=== PATIENT | female | born 1965 | race Caucasian/White ===

== ENCOUNTER 2016-11-02 02:01 | Emergency (ER) | payer BC ==
--- NOTE | 2016-11-02 02:21 | EDPRACDOC ---
<Javier Gaston - Last Filed: 11/02/16 04:09> - History of Present Illness Pain Location: Reports: Diffuse Pain Context: Reports: Spontaneous Pain Severity: Mild Pain Quality: Reports: Aching, Cramping Pain Radiation: Reports: Back Adult Abdominal History: Reports: Abdominal Surgery Modifying Factors: improves with: Nothing Female Associated Signs & Symptoms: Reports: Nausea, Vomiting Oral Intake: Decreased Urinary Output: Normal <Ranjeet Scott - Last Filed: 11/02/16 05:20> - General Information Stated Complaint: N/V Home Medications: Home Medications Cyanocobalamin (Vitamin B-12) [Vitamin B-12] 2,000 mcg PO DAILY 03/12/14 Folic Acid 1 mg PO DAILY 03/12/14 Multivitamin [Daily Vitamin] 1 each PO DAILY 03/12/14 Aspirin 11/02/16 Meloxicam 15 mg PO DAILY 11/02/16 Simvastatin 10 mg PO HS 11/02/16 Allergies/Adverse Reactions: Allergies Allergy/AdvReac Type Severity Reaction Status Date / Time mirabegron Allergy Unknown Verified 03/12/14 16:21 nitrofurantoin Allergy Difficulty Verified 03/12/14 15:28 [From Macrobid] Breathing nitrofurantoin Allergy Difficulty Verified 03/12/14 15:28 macrocrystalline Breathing [From Macrobid] Tetanus Vaccines and Toxoid Allergy Unknown Verified 11/02/16 02:29 - History of Present Illness HPI: NOTE SEEN AND EXAMINED; PT HAS HX OF AIHA WITH SUBSEQUENT SPLENECTOMY. THIS WAS DONE IN 2008. AIHA DX AT . SPLENECTOMY AT [facility]. PT DOES NOT WANT TO STAY HERE. [facility] DOES NOT HAVE BEDS. WE WILL TRY . HX OF DVT'S AND IVC FILTER. (Javier Gaston) C/o sudden onset lower abdominal pain, lower back pain, N/V, and a lot of burping x 3 starting today at 4pm. Abdo pain is constant, worse lower but diffuse, rated a 3/10. Lower back pain is constant, better with massage. Pt tried famotidine 20mg x 2 and rolaids with no sig relief. Denies fever, cp, sob , diarrhea, changes in urine or BM. Med hx = acquired hemolytic anemia in remission, chronic pain. Surgical hx = aime, splenectomy. (Ranjeet Scott ) ED Past Medical History - History Reviewed Yes Nurses notes reviewed and agree except as marked <Ranjeet Scott - Last Filed: 11/02/16 05:20> EDM Review of Systems - Review of Systems ROS Negative Except as Marked: Yes All systems reviewed and were negative except as marked Gastrointestinal: Nausea, Pain, Vomiting Musculoskeletal: Back (pain) <Ranjeet Scott - Last Filed: 11/02/16 05:20> - Physical Exam Constitutional: No apparent distress, Alert Oriented to: Time, Person, Place - HEENT Head: Normal Eye Exam: negative: Conjunctival Injection, Scleral Icterus Oropharynx: negative: Drooling TMJ: Normal Nose: No Symptoms Reported Neck: Normal - Respiratory/Cardiovascular Respiratory: Normal - CTA Cardiovascular: Normal - GI Auscultation: Normal Palpation: Normal Tenderness: Non tender Garvin's Sign: Negative - Musculoskeletal Back: Normal Extremities: Normal - Integumentary Skin: Normal - Neurologic Mood Description: Normal Thought: Coherent Perception: Normal <Ranjeet Scott - Last Filed: 11/02/16 05:20> - Physical Exam Last recorded Vital Signs: Last Vital Signs Temp 98.6 F 11/02/16 05:00 Pulse 75 11/02/16 05:00 Resp 18 11/02/16 05:00 BP 156/80 11/02/16 05:00 Pulse Ox 97 11/02/16 05:00 Oxygen Pulse Oxygen Saturation 97 O2 Device Room Air Oxygen Flow Rate Fraction of Inspired Oxygen ( FIO2) (Javier Gaston) (Ranjeet Scott) - Results 11/02/16 02:25 11/02/16 02:25 <Javier Gaston - Last Filed: 11/02/16 04:09> - Results 11/02/16 02:25 11/02/16 02:25 - EKG EKG #1 EKG Time: 03:56 -: Yes EKG interpreted by me Rate: bpm: 50 Rhythm: SB Comments: no earlier EKG on file - Diagnostic Imaging Abdomen Image interpreted by: Radiologist Chest Image interpreted by: Radiologist <Ranjeet Scott - Last Filed: 11/02/16 05:20> - Results WBC 19.0 xk/uL (3.8-10.8) H 11/02/16 02:25 RBC 5.07 xM/uL (4.20-5.40) 11/02/16 02:25 Hgb 15.0 g/dL (12.0-16.0) 11/02/16 02:25 Hct 45.2 % (36-47) 11/02/16 02:25 MCV 89 fL (81-99) 11/02/16 02:25 MCH 29.7 pg (27-32) 11/02/16 02:25 MCHC 33.3 g/dl (33-36) 11/02/16 02:25 RDW 13.5 % (11.5-14.5) 11/02/16 02:25 Plt Count 383 xk/uL (130-400) 11/02/16 02:25 MPV 9.4 fL (7.4-10.4) 11/02/16 02:25 Neut % (Auto) 73.2 % (45-76) 11/02/16 02:25 Lymph % (Auto) 18.1 % (17-44) 11/02/16 02:25 [place] % (Auto) 7.2 % (3-10) 11/02/16 02:25 Eos % (Auto) 0.4 % (0-5) 11/02/16 02:25 Baso % (Auto) 1.1 % (0-2) 11/02/16 02:25 Absolute Neuts (auto) 13.87 xk/uL (1.7-8.2) H 11/02/16 02:25 Absolute Lymphs (auto) 3.42 xk/uL (0.65-4.75) 11/02/16 02:25 PT 10.1 SEC (9.2-11.2) 11/02/16 04:25 INR 1.0 11/02/16 04:25 Sodium 138 mEq/L (137-146) 11/02/16 02:25 Potassium 4.6 mEq/L (3.5-5.1) 11/02/16 02:25 Chloride 100 mEq/L (98-107) 11/02/16 02:25 Carbon Dioxide 27 mMOL/L (22-33) 11/02/16 02:25 Anion Gap 16 mEq/L (8-16) 11/02/16 02:25 BUN 14 MG/DL (7-17) 11/02/16 02:25 Creatinine 0.60 MG/DL (0.52-1.04) 11/02/16 02:25 Estimated GFR (MDRD) > 60 mL/min (>=60) 11/02/16 02:25 Glucose 126 mg/dL (70-99) H 11/02/16 02:25 Calculated Osmolality 269 MOs/Kg (270-290) L 11/02/16 02:25 Calcium 9.9 MG/DL (8.4-10.2) 11/02/16 02:25 Total Bilirubin 0.6 MG/DL (0.2-1.3) 11/02/16 02:25 AST 20 IU/L (14-36) 11/02/16 02:25 ALT 32 IU/L (9-52) 11/02/16 02:25 Alkaline Phosphatase 78 IU/L (38-126) 11/02/16 02:25 Troponin I < 0.01 ng/mL (<.04) 11/02/16 04:25 Total Protein 7.3 G/DL (6.3-8.2) 11/02/16 02:25 Albumin 4.2 G/DL (3.5-5.0) 11/02/16 02:25 Urine Color Yellow 11/02/16 02:20 Urine Clarity Sl cldy 11/02/16 02:20 Urine pH 7.0 (5.0-8.0) 11/02/16 02:20 Ur Specific [place] 1.010 (1.003-1.035) 11/02/16 02:20 Urine Protein Neg (NEG/TRACE) 11/02/16 02:20 Urine Glucose (UA) Neg (NEGATIVE) 11/02/16 02:20 Urine Ketones Neg (NEGATIVE) 11/02/16 02:20 Urine Occult Blood Neg (NEG/TRACE) 11/02/16 02:20 Urine Nitrite Neg (NEGATIVE) 11/02/16 02:20 Urine Bilirubin Neg (NEGATIVE) 11/02/16 02:20 Urine Urobilinogen <2.0 MG/DL (0-1) 11/02/16 02:20 Ur Leukocyte Esterase Neg (NEGATIVE) 11/02/16 02:20 Urine WBC 0-2 (0-5) 11/02/16 02:20 Ur Epithelial Cells 2+ 11/02/16 02:20 Urine Mucus Occ (NEG/OCC) 11/02/16 02:20 Lab Results 11/02/16 11/02/16 11/02/16 04:25 04:25 02:25 WBC 19.0 H RBC 5.07 Hgb 15.0 Hct 45.2 MCV 89 MCH 29.7 MCHC 33.3 RDW 13.5 Plt Count 383 MPV 9.4 Neut % (Auto) 73.2 Lymph % (Auto) 18.1 [place] % (Auto) 7.2 Eos % (Auto) 0.4 Baso % (Auto) 1.1 Absolute Neuts (auto) 13.87 H Absolute Lymphs (auto) 3.42 PT 10.1 INR 1.0 Sodium Potassium Chloride Carbon Dioxide Anion Gap BUN Creatinine Estimated GFR (MDRD) Glucose Calculated Osmolality Calcium Total Bilirubin AST ALT Alkaline Phosphatase Troponin I < 0.01 Total Protein Albumin Urine Color Urine Clarity Urine pH Ur Specific [place] Urine Protein Urine Glucose (UA) Urine Ketones Urine Occult Blood Urine Nitrite Urine Bilirubin Urine Urobilinogen Ur Leukocyte Esterase Urine WBC Ur Epithelial Cells Urine Mucus 11/02/16 11/02/16 02:25 02:20 WBC RBC Hgb Hct MCV MCH MCHC RDW Plt Count MPV Neut % (Auto) Lymph % (Auto) [place] % (Auto) Eos % (Auto) Baso % (Auto) Absolute Neuts (auto) Absolute Lymphs (auto) PT INR Sodium 138 Potassium 4.6 Chloride 100 Carbon Dioxide 27 Anion Gap 16 BUN 14 Creatinine 0.60 Estimated GFR (MDRD) > 60 Glucose 126 H Calculated Osmolality 269 L Calcium 9.9 Total Bilirubin 0.6 AST 20 ALT 32 Alkaline Phosphatase 78 Troponin I Total Protein 7.3 Albumin 4.2 Urine Color Yellow Urine Clarity Sl cldy Urine pH 7.0 Ur Specific [place] 1.010 Urine Protein Neg Urine Glucose (UA) Neg Urine Ketones Neg Urine Occult Blood Neg Urine Nitrite Neg Urine Bilirubin Neg Urine Urobilinogen <2.0 Ur Leukocyte Esterase Neg Urine WBC 0-2 Ur Epithelial Cells 2+ Urine Mucus Occ (Javier Gaston) - Diagnostic Imaging Abdomen 11/02/16 04:42 EXAM: CT ABDOMEN AND PELVIS WITH CONTRAST TECHNIQUE: Multidetector CT imaging of the abdomen and pelvis was performed using the standard protocol following bolus administration of intravenous contrast. CONTRAST: 100 cc Isovue 370 COMPARISON: None. FINDINGS: The visualized lung bases are clear. No intra-abdominal free air or free fluid. Cholecystectomy. The liver, pancreas appear unremarkable. The spleen is not visualized and likely surgically absent. The adrenal glands, kidneys, visualized ureters, and urinary bladder appear unremarkable. The uterus and the ovaries are grossly unremarkable. There is a midline vertical anterior abdominal wall incisional scar. Multiple ventral hernia defect lobe along the incisional scar. There is a 5 cm supraumbilical defect with herniation of the omental fat. A 5 cm defect is noted more inferiorly at or just above the level of the umbilicus which contains multiple nondilated loops of small bowel. There is a 3.7 cm infraumbilical ventral hernia in the midline which contains a short segment of small bowel loop. There is mild stranding of the fat surrounding the herniated loop of bowel suggestive of a degree of strangulation and possible incarceration. There is evidence of bowel obstruction within the infraumbilical hernia. There are dilated loops of small bowel proximal to this hernia. Moderate stool noted throughout the colon. The appendix is not visualized with certainty. No inflammatory changes identified in the right lower quadrant. The abdominal aorta appears unremarkable. An infrarenal IVC filter noted. Top no right lower quadrant and mesenteric lymph nodes. There is a broad-based defect in the left lateral abdominal wall with herniation of multiple loops of small bowel. No evidence of obstruction or inflammation of the bowel within this hernia. There is degenerative changes of the spine. No acute fracture. IMPRESSION: Multiple ventral hernia along the midline incisional scar. There is small bowel obstruction with transition zone in the infraumbilical hernia with possible signs of strangulation/incarceration. Clinical correlation and surgical consult is advised. Electronically Signed By: Luan Cuellar M.D. On: 11/02/2016 03:55 (Ranjeet Scott) Chest 11/02/16 04:43 EXAM: PORTABLE CHEST 1 VIEW COMPARISON: None. FINDINGS: The lungs are well-aerated. Minimal left basilar atelectasis is noted. There is no evidence of pleural effusion or pneumothorax. The cardiomediastinal silhouette is borderline normal in size. No acute osseous abnormalities are seen. No free intra-abdominal air is seen. Postoperative change is noted overlying the left upper quadrant. IMPRESSION: Minimal left basilar atelectasis noted. Lungs otherwise clear. Electronically Signed By: Jackson Rea M.D. On: 11/02/2016 04:18 (Ranjeet Scott) - Departure Yes I personally saw and evaluated the patient. Disposition: Trans. to Other Hospital Decision to Transfer Time: 04:07 (CHOCO URRUTIA) <Javier Gaston - Last Filed: 11/02/16 04:09> <Ranjeet Scott - Last Filed: 11/02/16 05:20> - Departure Condition: Good Final Diagnosis: Abdominal pain, SBO Instructions: Abdominal Pain in Women, Acute Abdominal Pain (ED) Referrals: Kendal Busch, FORENSIC PATHOLOGIST [Primary Care Provider] - One Week Prescriptions: No Action Multivitamin [Daily Vitamin] 1 each PO DAILY Cyanocobalamin (Vitamin B-12) [Vitamin B-12] 2,000 mcg PO DAILY Folic Acid 1 mg PO DAILY Aspirin Meloxicam 15 mg PO DAILY Simvastatin 10 mg PO HS
[2016-11-02 02:26] VITALS: BMI 38.4
[2016-11-02 02:33] LABS: AUTOMATED BASOPHIL 1.1 % (0-2); AUTOMATED EOSINOPHIL 0.4 % (0-5); AUTOMATED LYMPH 18.1 % (17-44); AUTOMATED MONOCYTE 7.2 % (3-10); AUTOMATED NEUTROPHIL 73.2 % (45-76); MPV 9.4 fL (7.4-10.4)
[2016-11-02 02:41] LABS: BLOOD UREA NITROGEN 14 MG/DL (7-17); CALCIUM 9.9 MG/DL (8.4-10.2); CALCULATED OSMOLALITY 269 MOs/Kg (270-290); CHLORIDE 100 mEq/L (98-107); GLUCOSE 126 mg/dL (70-99); SODIUM LEVEL 138 mEq/L (137-146); TOTAL PROTEIN 7.3 G/DL (6.3-8.2)
[2016-11-02] MEDS ORDERED: MORPHINE 4 MG/ML INJECTION IV ONE (02:44)
[2016-11-02] MEDS ORDERED: ONDANSETRON HCL 4 MG/2 ML VIAL IV ONE (02:44)
[2016-11-02 02:57] LABS: LEUKOCYTES/URINE NEG (NEGATIVE); NITRITE/URINE NEG (NEGATIVE); URINE OCCULT BLOOD NEG (NEG/TRACE); WBC/URINE 0-2 (0-5)
--- NOTE | 2016-11-02 03:57 | DIRPT ---
CLINICAL DATA: 51-year-old female with abdominal pain EXAM: CT ABDOMEN AND PELVIS WITH CONTRAST TECHNIQUE: Multidetector CT imaging of the abdomen and pelvis was performed using the standard protocol following bolus administration of intravenous contrast. CONTRAST: 100 cc Isovue 370 COMPARISON: None. FINDINGS: The visualized lung bases are clear. No intra-abdominal free air or free fluid. Cholecystectomy. The liver, pancreas appear unremarkable. The spleen is not visualized and likely surgically absent. The adrenal glands, kidneys, visualized ureters, and urinary bladder appear unremarkable. The uterus and the ovaries are grossly unremarkable. There is a midline vertical anterior abdominal wall incisional scar. Multiple ventral hernia defect lobe along the incisional scar. There is a 5 cm supraumbilical defect with herniation of the omental fat. A 5 cm defect is noted more inferiorly at or just above the level of the umbilicus which contains multiple nondilated loops of small bowel. There is a 3.7 cm infraumbilical ventral hernia in the midline which contains a short segment of small bowel loop. There is mild stranding of the fat surrounding the herniated loop of bowel suggestive of a degree of strangulation and possible incarceration. There is evidence of bowel obstruction within the infraumbilical hernia. There are dilated loops of small bowel proximal to this hernia. Moderate stool noted throughout the colon. The appendix is not visualized with certainty. No inflammatory changes identified in the right lower quadrant. The abdominal aorta appears unremarkable. An infrarenal IVC filter noted. Top no right lower quadrant and mesenteric lymph nodes. There is a broad-based defect in the left lateral abdominal wall with herniation of multiple loops of small bowel. No evidence of obstruction or inflammation of the bowel within this hernia. There is degenerative changes of the spine. No acute fracture. IMPRESSION: Multiple ventral hernia along the midline incisional scar. There is small bowel obstruction with transition zone in the infraumbilical hernia with possible signs of strangulation/incarceration. Clinical correlation and surgical consult is advised. Electronically Signed By: Luan Cuellar M.D. On: 11/02/2016 03:55
[2016-11-02] MEDS ORDERED: Pharmacy Review for Metformin - IV Contrast Given SCH (04:00)
--- NOTE | 2016-11-02 04:21 | DIRPT ---
CLINICAL DATA: Acute onset of burping, nausea, vomiting and lower back pain. Initial encounter. EXAM: PORTABLE CHEST 1 VIEW COMPARISON: None. FINDINGS: The lungs are well-aerated. Minimal left basilar atelectasis is noted. There is no evidence of pleural effusion or pneumothorax. The cardiomediastinal silhouette is borderline normal in size. No acute osseous abnormalities are seen. No free intra-abdominal air is seen. Postoperative change is noted overlying the left upper quadrant. IMPRESSION: Minimal left basilar atelectasis noted. Lungs otherwise clear. Electronically Signed By: Jackson Rea M.D. On: 11/02/2016 04:18
[2016-11-02 05:03] VITALS: BP 156/80; PULSE 75; TEMP 98.6
== END 2016-11-02 05:06 | disposition home or self-care (01) ==
LOC: ED 02:01
DX: K56.60 Unspecified intestinal obstruction (principal)
CPT/HCPCS: 36415; 71010; 74177; 80053; 81001; 84484; 85025; 85610; 93005; 96374; 96375; 99284; A9698; J2270; J2405